=== PATIENT | female | born 1970 | race Two or more races ===

== ENCOUNTER 2018-06-21 14:49 | Emergency (ER) | payer OTHER ==
[~2018-06-21] VITALS: Ht 157.5 cm; Wt 70.3 kg
[~2018-06-21 14:49] MED LIST: LIPITOR20 MG
[2018-06-21] MEDS ORDERED: PRILOSEC2.5 MG (15:11)
== END 2018-06-21 22:07 | disposition home or self-care (01) ==
LOC: ER 14:49
DX: K52.9 Noninfective gastroenteritis and colitis, unspecified (principal)

== ENCOUNTER 2020-03-07 06:30 | Emergency (ER) | payer OTHER ==
[~2020-03-07] VITALS: Ht 157.5 cm; Wt 65.8 kg
[~2020-03-07 06:30] MED LIST changes: +PRILOSEC2.5 MG
[2020-03-07] MEDS ORDERED: LIPITOR40 MG (06:36)
[2020-03-07] MEDS ORDERED: RELAFEN DS1000 MG (06:37)
[2020-03-07] MEDS ORDERED: SKELAXIN800 MG PO (11:21)
[2020-03-07] MEDS ORDERED: ULTRAM50 MG PO (11:21)
[2020-03-07] MEDS ORDERED: GABAPENTIN100 M2 PO (11:21)
[2020-03-07] MEDS ORDERED: VOLTAREN100 GM TOP (11:21)
== END 2020-03-07 11:49 | disposition home or self-care (01) ==
LOC: ER 06:30
DX: M77.31 Calcaneal spur, right foot (principal); M51.27 Other intervertebral disc displacement, lumbosacral region; M79.671 Pain in right foot; R30.0 Dysuria

== ENCOUNTER → 2021-09-29 07:10 | Outpatient (CLI) | payer OTHER ==
[~2021-09-29 07:10] MED LIST changes: +GABAPENTIN100 M2 PO; +LIPITOR40 MG; +RELAFEN DS1000 MG; +SKELAXIN800 MG PO; +ULTRAM50 MG PO; +VOLTAREN100 GM TOP
== END | disposition home or self-care (01) ==
LOC: LAB 07:10
PROVIDERS: ATTEND Internal Medicine Cardiovascular Disease
DX: I10 Essential (primary) hypertension (principal); E11.9 Type 2 diabetes mellitus without complications; E03.8 Other specified hypothyroidism; E78.2 Mixed hyperlipidemia; E55.9 Vitamin D deficiency, unspecified; I25.10 Atherosclerotic heart disease of native coronary artery without angina pectoris; G45.8 Other transient cerebral ischemic attacks and related syndromes

== ENCOUNTER → 2021-09-29 11:32 | Outpatient (CLI) | payer OTHER | END | disposition home or self-care (01) | LOC: NUCLEAR 11:00 | PROVIDERS: ATTEND Internal Medicine Cardiovascular Disease | DX: M81.0 Age-related osteoporosis without current pathological fracture (principal); E55.9 Vitamin D deficiency, unspecified; I87.2 Venous insufficiency (chronic) (peripheral) ==

== ENCOUNTER → 2021-09-30 08:12 | Outpatient (CLI) | payer OTHER | END | disposition home or self-care (01) | LOC: NUCLEAR 08:00 | PROVIDERS: ATTEND Internal Medicine Cardiovascular Disease | DX: G45.9 Transient cerebral ischemic attack, unspecified (principal); I25.10 Atherosclerotic heart disease of native coronary artery without angina pectoris; I10 Essential (primary) hypertension ==

== ENCOUNTER 2021-11-23 06:00 | Emergency (ER) | payer OTHER ==
[~2021-11-23] VITALS: Ht 157.5 cm; Wt 66.2 kg
== END 2021-11-23 09:53 | disposition home or self-care (01) ==
LOC: ER 06:00
DX: J06.9 Acute upper respiratory infection, unspecified (principal); B34.9 Viral infection, unspecified

== ENCOUNTER 2023-04-10 06:05 | Emergency (ER) | payer OTHER ==
[~2023-04-10] VITALS: Ht 157.5 cm; Wt 71.7 kg
[~2023-04-10 06:05] MED LIST changes: +METHOCARBAMOL500 MG PO
[2023-04-10] MEDS ORDERED: PENTOXIFYLLINE400 MG PO (06:23)
[2023-04-10] MEDS ORDERED: ADULT LOW DOSE81 M1 (06:24)
[2023-04-10] MEDS ORDERED: CELEBREX200MG PO (14:24)
[2023-04-10] MEDS ORDERED: MEDROLPACK PO (14:24)
[2023-04-10] MEDS ORDERED: METAXALONE800 MG PO (14:24)
[2023-04-10] MEDS ORDERED: TYLENOL ARTHRI650 MG PO (14:24)
== END 2023-04-10 14:54 | disposition home or self-care (01) ==
LOC: ER 06:05
DX: R10.31 Right lower quadrant pain (principal); M54.30 Sciatica, unspecified side